=== PATIENT | male | born 2000 | race Caucasian/White ===

== ENCOUNTER 2021-09-22 18:13 | Emergency (ER) | payer BC ==
[~2021-09-22] VITALS: Ht 188 cm; Wt 95.5 kg
[2021-09-22 19:29] VITALS: BP 158/88; PULSE 85; TEMP 98.4
== END 2021-09-22 19:32 | disposition home or self-care (01) ==
LOC: COL.ER 18:13
DX: S40.012A Contusion of left shoulder, initial encounter (principal); S20.20XA Contusion of thorax, unspecified, initial encounter; V86.56XA Driver of dirt bike or motor/cross bike injured in nontraffic accident, initial encounter